=== PATIENT | male | born 2000 | race Caucasian/White ===

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

== ENCOUNTER 2020-12-10 14:30 | Emergency (ER) | payer SELFPAY ==
[2020-12-10 14:38] VITALS: BP 132/78; PULSE 111; TEMP 98; BMI 26.6
[2020-12-10] MEDS ORDERED: KETOROLAC TROMETHAMINE 30 MG/1 ML VIAL IM ONE (15:15)
[2020-12-10] MEDS ORDERED: KETOROLAC TROMETHAMINE 30 MG/1 ML VIAL ONE (15:19)
== END 2020-12-10 17:08 | disposition home or self-care (01) ==
LOC: JERFT 14:30
PROC: 3E0233Z Introduction of Anti-inflammatory into Muscle, Percutaneous Approach (ICD-10-PCS; principal; 2020-12-10)
DX: M79.644 Pain in right finger(s) (principal)
CPT/HCPCS: 73130-TC-RT-FY; 99284-25

== ENCOUNTER 2023-09-22 14:58 | Emergency (ER) | payer OTHER ==
[2023-09-22 15:19] VITALS: BP 120/70; PULSE 60; RESP 18; TEMP 98; BMI 25.8
[2023-09-22] MEDS ORDERED: DIPHTH,PERTUSS(ACELL),TET 0.5 ML DISP.SYRIN IM ONE ×2 (16:30→16:33)
[2023-09-22] MEDS ORDERED: IBUPROFEN 400 MG TABLET (FP) PO ONE ×2 (16:31→16:33)
[2023-09-22] MEDS ORDERED: AMOX TR/POT CLAV 875MG/125MG TABLETS (FP) PO ONE (18:00)
[2023-09-22] MEDS ORDERED: AMOX TR/POT CLAV 875MG/125MG TABLETS (FP) ONE (18:05)
[2023-09-22] MEDS ORDERED: BACITRACIN ZINC 15 GM TUBE TOPICAL OINTMENT ONE (18:09)
== END 2023-09-22 18:19 | disposition home or self-care (01) ==
LOC: JERFT 14:58
PROC: 3E0234Z Introduction of Serum, Toxoid and Vaccine into Muscle, Percutaneous Approach (ICD-10-PCS; principal; 2023-09-22)
DX: S61.451A Open bite of right hand, initial encounter (principal); W54.0XXA Bitten by dog, initial encounter
CPT/HCPCS: 73130-TC-RT-FY; 90471; 90715; 99283-25